=== PATIENT | female | born 1955 | race Caucasian/White ===

== ENCOUNTER 2021-07-25 12:39 | Inpatient (IN) | payer MEDICARE ==
[~2021-07-25] VITALS: Ht 160 cm; Wt 174.3 kg
[2021-07-25 14:18] LABS: BASOPHILS ABSOLUTE AUTO 0.03 K/mm3 (0.00-0.23); BASOPHILS PERCENT AUTO 0 % (0-2); EOSINOPHILS ABSOLUTE AUTO 0.02 K/mm3 (0.00-0.68); EOSINOPHILS PERCENT AUTO 0 % (0-6); Hematocrit 47.5 % (33.0-51.0); Hemoglobin 14.7 g/dL (11.5-16.0); IMMATURE GRAN ABSOLUTE AUTO 0.09 K/mm3 (0.00-0.10); IMMATURE GRAN PERCENT AUTO 1 % (0-1); LYMPHOCYTES ABSOLUTE AUTO 1.37 K/mm3 (0.84-5.20); LYMPHOCYTES PERCENT AUTO 9 % (21-46); MONOCYTES ABSOLUTE AUTO 0.62 K/mm3 (0.16-1.47); MONOCYTES PERCENT AUTO 4 % (4-13); Mean Corpuscular HGB 26.2 pg (26.0-34.0); Mean Corpuscular HGB Conc 30.9 g/dL (31.5-36.5); Mean Corpuscular Volume 85 fL (80-100); Mean Platelet Volume 10.5 fL (9.1-12.4); NEUTROPHILS ABSOLUTE AUTO 13.67 K/mm3 (1.96-9.15); NEUTROPHILS PERCENT AUTO 87 % (41-73); Platelet Count 332 K/mm3 (150-400); RDW Coefficient Variation 15.1 % (11.7-14.2); RDW Standard Deviation 46.3 fL (35.1-46.3); Red Blood Cell Count 5.61 M/mm3 (3.80-5.20)
[2021-07-25 14:27] LABS: Alanine Aminotransfer (ALT/SGP 39 U/L (12-78); Albumin, Blood 3.4 g/dL (3.4-5.0); Albumin/Globulin Ratio 0.9 (0.8-1.8); Alk Phos 80 U/L (50-136); Anion Gap 7 mmol/L (6-16); Aspartate Aminotrans (AST/SGOT 18 U/L (12-37); Bilirubin, Total 0.9 mg/dL (0.1-1.0); Blood Urea Nitrogen 19 mg/dL (8-24); Bun/Creatinine Ratio 31.4 (12.0-20.0); CO2, Blood 31 mmol/L (21-32); Calcium, Blood 9.1 mg/dL (8.5-10.1); Chloride, Blood 98 mmol/L (98-108); Creatinine, Blood 0.61 mg/dL (0.40-1.00); Globulin, Blood 3.7 g/dL (2.2-4.0); Glomerular Filtration Rate >60 (60-); Glucose, Blood 205 mg/dL (70-99); Potassium, Blood 3.9 mmol/L (3.5-5.5); Sodium, Blood 136 mmol/L (136-145); Total Protein, Blood 7.1 g/dL (6.4-8.2)
[2021-07-25] MEDS ORDERED: AMLODIPINE BESY10 MG PO (14:53)
[2021-07-25] MEDS ORDERED: DICL75ER PO (14:53)
[2021-07-25] MEDS ORDERED: ATORVASTATIN CA20 MG PO (14:53)
[2021-07-25] MEDS ORDERED: VENL75ER PO (14:54)
[2021-07-25] MEDS ORDERED: LOSA50 PO (14:54)
[2021-07-25] MEDS ORDERED: METFORMIN HCL500 M3 PO (14:54)
[2021-07-25] MEDS ORDERED: SYNTHROID88 MCG PO (14:55)
[2021-07-25 16:02] LABS: Source, Urine Fem Cath
[2021-07-25 16:06] LABS: Appearance, Urine Hazy (Clear); Bilirubin, Urine Neg (Neg); Blood, Urine 3+ (Neg); Color, Urine Amber (P-Yellow); Glucose Qualitative, Urine Neg (Neg); Ketones, Urine 3+ (Neg); Leukocyte Esterase, Urine 3+ (Neg); Nitrite, Urine Pos (Neg); Protein, Urine 1+ (Neg); Urobilinogen, Urine 2+ (Normal)
[2021-07-25 16:17] LABS: Bacteria Many /hpf; Red Blood Cells, Urine 0-2 /hpf (0-2); Squamous Epithelial Cells Not Seen /hpf (Few)
--- NOTE | 2021-07-26 | NUR ---
ARRIVAL TO ICU PT ARRIVED TO ICU 16 AT 2205 FROM OR ON ICU BED. PT INTUBATED WITH VENT SETTINGS AC/VC+ 18/375/8/40%. PT IS ALERT AND ANSWERING Y/N QUESTIONS APPROPRIATLY; PT IS ABLE TO COMMUNICATE WITH HAND GESTURES TOO; PROPOFOL STARTED AT 30MCG/KG/MIN AND TITRATED UP TO 40MCG/KG/MIN FOR VENT COMPLIENCE. AFEBRILE. HR 60-80'S. SBP 120-170'S. HYPOACTIVE BT; JAX DRAIN IN PLACE AND DRAINING SEROSANGUINOUS FLUID; DRESSING C/D/I; WOUND VAC TO MIDLINE ABD, DRESSING INTACT; NG TO LIS. FUENTES IN PLACE AND DRAINING TO GRAVITY. SINGLE 20G IV IN RT AC. NS INFUSING AT 75ML/HR. SEE ADDMISSION ASSESSMENT FOR FULL ASSESSMENT. ATTEMPTED TO PLACE ANOTHER PERIPHERAL IV AND NOT SUCCESSFUL. STITCHER SPECIAL MACHINE JANINA ATTMEPTED TWO OTHER PERIPHERAL IV'S AND NOT SUCCESSFUL. JANINA ATTEMPTED POWERGLIDE AND WAS NOT ABLE TO PLACE ONE. DR CARPENTER CALLED FOR A CENTRAL LINE. PLAN FOR HIM TO PLACE A CENTRAL LINE.
[2021-07-26 01:45] LABS: Source, Urine Foley catheter
[2021-07-26 01:50] LABS: Bilirubin, Urine Neg (Neg); Blood, Urine 4+ (Neg); Glucose Qualitative, Urine Neg (Neg); Ketones, Urine 3+ (Neg); Leukocyte Esterase, Urine 3+ (Neg); Nitrite, Urine Pos (Neg); Protein, Urine 2+ (Neg); Urobilinogen, Urine 1+ (Normal)
[2021-07-26 01:51] LABS: Appearance, Urine Hazy (Clear); Color, Urine Yellow (P-Yellow)
[2021-07-26 02:00] LABS: Red Blood Cells, Urine 25-50 /hpf (0-2); Squamous Epithelial Cells Not Seen /hpf (Few); White Blood Cells, Urine 50-100 /hpf (0-5)
[2021-07-26 02:01] LABS: Bacteria Mod /hpf
[2021-07-26 04:33] LABS: BASOPHILS ABSOLUTE AUTO 0.03 K/mm3 (0.00-0.23); BASOPHILS PERCENT AUTO 0 % (0-2); EOSINOPHILS PERCENT AUTO 0 % (0-6); Hematocrit 39.5 % (33.0-51.0); Hemoglobin 12.1 g/dL (11.5-16.0); IMMATURE GRAN PERCENT AUTO 1 % (0-1); LYMPHOCYTES ABSOLUTE AUTO 1.18 K/mm3 (0.84-5.20); LYMPHOCYTES PERCENT AUTO 7 % (21-46); MONOCYTES PERCENT AUTO 4 % (4-13); Mean Corpuscular HGB 26.2 pg (26.0-34.0); Mean Corpuscular HGB Conc 30.6 g/dL (31.5-36.5); Mean Corpuscular Volume 86 fL (80-100); Mean Platelet Volume 10.3 fL (9.1-12.4); NEUTROPHILS ABSOLUTE AUTO 14.02 K/mm3 (1.96-9.15); NEUTROPHILS PERCENT AUTO 87 % (41-73); Platelet Count 277 K/mm3 (150-400); RDW Coefficient Variation 15.1 % (11.7-14.2); Red Blood Cell Count 4.61 M/mm3 (3.80-5.20); White Blood Cell Count 16.03 K/mm3 (4.00-11.30)
[2021-07-26 05:02] LABS: Alanine Aminotransfer (ALT/SGP 30 U/L (12-78); Albumin, Blood 2.6 g/dL (3.4-5.0); Albumin/Globulin Ratio 0.9 (0.8-1.8); Alk Phos 63 U/L (50-136); Anion Gap 7 mmol/L (6-16); Aspartate Aminotrans (AST/SGOT 14 U/L (12-37); Bilirubin, Total 0.4 mg/dL (0.1-1.0); Blood Urea Nitrogen 17 mg/dL (8-24); Bun/Creatinine Ratio 27.3 (12.0-20.0); CO2, Blood 30 mmol/L (21-32); Chloride, Blood 102 mmol/L (98-108); Creatinine, Blood 0.62 mg/dL (0.40-1.00); Globulin, Blood 2.9 g/dL (2.2-4.0); Glomerular Filtration Rate >60 (60-); Glucose, Blood 177 mg/dL (70-99); Magnesium, Blood 1.9 mg/dL (1.6-2.4); Potassium, Blood 3.2 mmol/L (3.5-5.5); Sodium, Blood 139 mmol/L (136-145); Total Protein, Blood 5.5 g/dL (6.4-8.2)
--- NOTE | 2021-07-26 06:30 | NUR ---
END OF SHIFT SUMMARY PT CONT TO BE INTUBATED WITH VENT SETTINGS AC/VC+ 18/375/8/40%. PROPOFOL INFUSING AT 40MCG/KG/MIN; PT ABLE TO OPEN EYES TO VERBAL STIMULI. AFEBRILE. HR 60'S. SBP 120-140'S. PT HAD TWO LARGE LOOSE BM'S THIS SHIFT; JAX DRAINING WITH 50ML OUTPUT; WOUND VAC DRESSING INTACT; NG TO LIS. FUENTES INPLACE WITH 650ML URINE OUTPUT. PT JEREMY FOLDS VERY RED AND YEAST LOOKING; PICTURES IN CHART; AREA CLEANED AND DRIED. CENTRAL LINE TO RT IJ IN PLACE; PT TOLERATED PROCEDURE WILL. NS INFUSING AT 75ML/HR. REPORT GIVEN TO MADHU Willett RN.
--- NOTE | 2021-07-26 07:30 | NUR ---
ASSUMED CARE: PT INTUBATED AND SEDATED WITH PROPOFOL AT 40MCG/KG. VENT SETTINGS 18/350/8/40%. OG IN PLACE WITH GREEN DRAINAGE, SET AT LIS. STOOL THIS AM, BROWN, LIQUID. BT HYPOACTIVE. FUENTES IN PLACE DRAINING CLEAR YELLOW URINE. BILATERAL WRIST RESTRAINTS TO PROTECT LINES. MIDLINE DRESSING WITH IRAIS AND JAX DRAIN DRAINING CRANBERRY COLORED FLUID. NO ACUTE NEEDS AT THIS TIME.
--- NOTE | 2021-07-26 09:42 | NUR ---
DR RODGERS CAME TO SEE PT AND CHANGED VENT SETTINGS TO PS WITH CURRENT SETTING 5/5 WITH 40% FIO2. SEDATION ON SB. DR MOCTEZUMA CAME TO SEE PT AND GAVE NO NEW ORDERS ON HERNIA SITE AT THIS TIME. DRS STATE PT HAS A HYDRONEPHROSIS THAT WILL BE ADDRESSED AT A LATER TIME, AFTER RESPIRATORY STATUS IS STABILIZED
--- NOTE | 2021-07-26 10:43 | NUR ---
PT EXTUBATED AT 1020. CURRENTLY ON 4LNC AT THIS TIME. NO ACUTE NEEDS. RESTING QUIETLY. STATES PAIN IS 5/10. WILL MEDICATE ABLE
--- NOTE | 2021-07-26 13:56 | NUR ---
CALL TO DR MOCTEZUMA REGARDING PT'S FLUID ORDER. CHANGED FLUID TO LR. AWARE THAT BROWN OUTPUT NOTED AND 800ML IN CANISTER THIS SHIFT. PT C/O PAIN WITH REPOSITIONING. CURRENT PAIN MED ORDERS TO REMAIN. WISHES TO MONITOR PT A FEW HOURS MORE IN ICU THEN OK TO MOVE TO SURG IF NO ACUTE ISSUES.
--- NOTE | 2021-07-26 15:00 | NUR ---
NOTIFIED DR RODGERS AND THIRD RIGGER DUE TO PT DESATURATING INTO 60S WITH SLEEP. WHEN PT WAKES UP, SATURATIONS IMPROVE BACK INTO THE 90S QUICKLY. THIRD RIGGER SUGGESTED HIFLOW CANNULA FOR EXTRA PRESSURE BUT DR MCCAULEY STATES PT IS OK ON NC AND SHOULD HAVE CONTINOUS BIOX WHEN GOING TO FLOOR
--- NOTE | 2021-07-26 15:50 | NUR ---
CALL TO SURGICAL FLOOR TO CHECK ON WISHES FOR CENTRAL LINE REMOVAL DUE TO THE FACT THAT PT HAS 1 PERIPHERAL LINE AND POOR IV ACCESS. CLINICAL COORDINATOR ON SURG STATED OK TO BRING OUT IF DR WAS COMFORTABLE WITH PT BEING ON SURGICAL WITH IT. DR RODGERS STATES OK TO SEND PT WITH IT SO THAT PT WILL CONTINUE TO HAVE ACCESS.
--- NOTE | 2021-07-26 17:23 | NUR ---
PATIENT ARRIVED TO UNIT FROM ICU. TRANSFERRED TO BED W/ OVERHEAD LIFT, PATIENT TOLERATED WELL. REPORTS PAIN TO BE 5/10 TO ABDOMEN AND REPORTS THAT TO BE A TOLERABLE LEVEL. MIDLINE INCIOSION W/ IRAIS, QUARTER SIZE DRAINAGE PRESENT. JAX IN [place], DRAINING LIGHT RED FLUID. FUENTES IN PLACE DRAINING TO GRAVITY, CLEAR YELLOW URINE. NG TUBE IN PLACE DRAINING LIGHT RED/ YELLOW FLUID TO LOW INT SUCTION. 4L O2 IN PLACE VIA NC. DENIES CP/SOB, DENIES N/T, DENIES N/V, REMAINS NPO. ORIENTED PATIENT TO ROOM & CALL LIGHT. WILL CONTINUE TO MONITOR & REPORT TO ONCOMING RN.
--- NOTE | 2021-07-26 17:26 | NUR ---
REPORT CALLED TO JACOBO IVEY. PT TRANSFERRED WITH NG CLAMPED FOR LIS IN SURGICAL FLOOR. TRANSFERRED VIA BED ON 2L. RN AWARE THAT PT IS TO BE ON CONTINUOUS BIOX DUE DESATURATING WITH SLEEP. FAMILY CALLED FOR UPDATE AND WERE MADE AWARE OF TRANSFER.
--- NOTE | 2021-07-27 02:18 | NUR ---
PT COMPLAINS OF LOWER BACK PAIN FREQUENTLY BUT CONTINUES TO DECLINE BEING REPOSITIONED IN BED, EXTRA PILLOWS, AND A HEATING PAD. WILL CONT TO OFFER, BUT PT ONLY WANTS HER HEAD OF BED RAISED AND LOWERED AT THIS TIME.
--- NOTE | 2021-07-27 04:20 | NUR ---
SHIFT SUMMARY NO ACUTE CHANGES THIS SHIFT. NGT TO LIS WITH BROWN DRAINAGE. JAX WITH MINIMAL SS DRAINAGE. IRAIS MIDLINE REMAINS INTACT. IVF INFUSING PER ORDERS. 50 MCG FENTANYL FOR PAIN PRN. PT REFUSES TO BE REPOSITIONED IN BED T/O SHIFT. FUENTES INTACT AND DRAINING. USES CALL LIGHT APPROPRIATELY.
[2021-07-27 04:58] LABS: BASOPHILS ABSOLUTE AUTO 0.03 K/mm3 (0.00-0.23); BASOPHILS PERCENT AUTO 0 % (0-2); EOSINOPHILS ABSOLUTE AUTO 0.13 K/mm3 (0.00-0.68); EOSINOPHILS PERCENT AUTO 1 % (0-6); Hematocrit 40.5 % (33.0-51.0); Hemoglobin 12.2 g/dL (11.5-16.0); IMMATURE GRAN ABSOLUTE AUTO 0.11 K/mm3 (0.00-0.10); IMMATURE GRAN PERCENT AUTO 1 % (0-1); LYMPHOCYTES ABSOLUTE AUTO 1.74 K/mm3 (0.84-5.20); LYMPHOCYTES PERCENT AUTO 11 % (21-46); MONOCYTES ABSOLUTE AUTO 0.91 K/mm3 (0.16-1.47); MONOCYTES PERCENT AUTO 6 % (4-13); Mean Corpuscular HGB 26.2 pg (26.0-34.0); Mean Corpuscular HGB Conc 30.1 g/dL (31.5-36.5); Mean Corpuscular Volume 87 fL (80-100); Mean Platelet Volume 9.9 fL (9.1-12.4); NEUTROPHILS ABSOLUTE AUTO 12.66 K/mm3 (1.96-9.15); NEUTROPHILS PERCENT AUTO 81 % (41-73); Platelet Count 249 K/mm3 (150-400); RDW Coefficient Variation 15.5 % (11.7-14.2); RDW Standard Deviation 49.1 fL (35.1-46.3); Red Blood Cell Count 4.65 M/mm3 (3.80-5.20); White Blood Cell Count 15.58 K/mm3 (4.00-11.30)
[2021-07-27 05:45] LABS: Albumin, Blood 2.4 g/dL (3.4-5.0); Anion Gap 4 mmol/L (6-16); Blood Urea Nitrogen 13 mg/dL (8-24); Bun/Creatinine Ratio 19.7 (12.0-20.0); CO2, Blood 33 mmol/L (21-32); Calcium, Blood 8.2 mg/dL (8.5-10.1); Chloride, Blood 105 mmol/L (98-108); Creatinine, Blood 0.66 mg/dL (0.40-1.00); Glomerular Filtration Rate >60 (60-); Glucose, Blood 144 mg/dL (70-99); Phosphorus, Blood 2.8 mg/dL (2.5-4.9); Potassium, Blood 3.1 mmol/L (3.5-5.5); Sodium, Blood 142 mmol/L (136-145)
--- NOTE | 2021-07-27 18:46 | NUR ---
SHIFT SUMMARY PT ADVANCED TO CLEAR LIQUIDS THIS AM. PT TOLERATING DIET WELL. PT'S NG TUBE DCED DURING THIS SHIFT. PT OUT OF BED AND TO CHAIR W/ ASSISTANCE FROM PT. PT TO BE NPO AT MIDNIGHT PER DR MOCTEZUMA. PT RECEIVED MEDICATIONS ORDERED THROUGHOUT SHIFT. PT'S PAIN CONTROLLED W/ NORCO ADMINISTERED ORDERED. PT RESTED THROUGHOUT DURATION OF SHIFT AND CONTINUED TO REST IN CHAIR AT THIS TIME.
--- NOTE | 2021-07-28 04:14 | NUR ---
SHIFT SUMMARY NO ACUTE CHANGES. PT SLEPT IN CHAIR. 2 NORCO FOR ABD/LOWER BACK PAIN. IRAIS REMAINS COMPRESSED AND INTACT. JAX WITH SMALL SS DRAINAGE. PT WITH NO FLATUS YET. DENIES NAUSEA. NPO SINCE MIDNIGHT FOR IR PROCEDURE. FUENTES IN PLACE. IVF INFUSING PER ORDERS. USES CALL LIGHT APPROPRIATELY.
[2021-07-28 05:01] LABS: BASOPHILS ABSOLUTE AUTO 0.05 K/mm3 (0.00-0.23); BASOPHILS PERCENT AUTO 0 % (0-2); EOSINOPHILS ABSOLUTE AUTO 0.32 K/mm3 (0.00-0.68); EOSINOPHILS PERCENT AUTO 3 % (0-6); Hematocrit 39.4 % (33.0-51.0); Hemoglobin 11.6 g/dL (11.5-16.0); IMMATURE GRAN ABSOLUTE AUTO 0.09 K/mm3 (0.00-0.10); IMMATURE GRAN PERCENT AUTO 1 % (0-1); LYMPHOCYTES ABSOLUTE AUTO 2.24 K/mm3 (0.84-5.20); LYMPHOCYTES PERCENT AUTO 18 % (21-46); MONOCYTES ABSOLUTE AUTO 0.68 K/mm3 (0.16-1.47); MONOCYTES PERCENT AUTO 5 % (4-13); Mean Corpuscular HGB 26.1 pg (26.0-34.0); Mean Corpuscular HGB Conc 29.4 g/dL (31.5-36.5); Mean Corpuscular Volume 89 fL (80-100); Mean Platelet Volume 9.9 fL (9.1-12.4); NEUTROPHILS ABSOLUTE AUTO 9.22 K/mm3 (1.96-9.15); NEUTROPHILS PERCENT AUTO 73 % (41-73); Platelet Count 239 K/mm3 (150-400); RDW Coefficient Variation 15.5 % (11.7-14.2); RDW Standard Deviation 50.1 fL (35.1-46.3); Red Blood Cell Count 4.44 M/mm3 (3.80-5.20)
[2021-07-28 05:34] LABS: Anion Gap 3 mmol/L (6-16); Blood Urea Nitrogen 12 mg/dL (8-24); Bun/Creatinine Ratio 22.3 (12.0-20.0); CO2, Blood 34 mmol/L (21-32); Calcium, Blood 8.3 mg/dL (8.5-10.1); Chloride, Blood 103 mmol/L (98-108); Creatinine, Blood 0.54 mg/dL (0.40-1.00); Glomerular Filtration Rate >60 (60-); Glucose, Blood 136 mg/dL (70-99); Potassium, Blood 3.4 mmol/L (3.5-5.5); Sodium, Blood 140 mmol/L (136-145)
[2021-07-29 05:05] LABS: BASOPHILS ABSOLUTE AUTO 0.04 K/mm3 (0.00-0.23); BASOPHILS PERCENT AUTO 0 % (0-2); EOSINOPHILS ABSOLUTE AUTO 0.21 K/mm3 (0.00-0.68); EOSINOPHILS PERCENT AUTO 1 % (0-6); Hematocrit 37.9 % (33.0-51.0); Hemoglobin 11.1 g/dL (11.5-16.0); IMMATURE GRAN ABSOLUTE AUTO 0.08 K/mm3 (0.00-0.10); IMMATURE GRAN PERCENT AUTO 1 % (0-1); LYMPHOCYTES ABSOLUTE AUTO 0.79 K/mm3 (0.84-5.20); LYMPHOCYTES PERCENT AUTO 5 % (21-46); MONOCYTES ABSOLUTE AUTO 0.51 K/mm3 (0.16-1.47); MONOCYTES PERCENT AUTO 3 % (4-13); Mean Corpuscular HGB 26.2 pg (26.0-34.0); Mean Corpuscular HGB Conc 29.3 g/dL (31.5-36.5); Mean Corpuscular Volume 90 fL (80-100); Mean Platelet Volume 10.2 fL (9.1-12.4); NEUTROPHILS ABSOLUTE AUTO 14.27 K/mm3 (1.96-9.15); NEUTROPHILS PERCENT AUTO 90 % (41-73); Platelet Count 216 K/mm3 (150-400); RDW Coefficient Variation 15.2 % (11.7-14.2); Red Blood Cell Count 4.23 M/mm3 (3.80-5.20)
[2021-07-29 05:30] LABS: Anion Gap 2 mmol/L (6-16); Blood Urea Nitrogen 12 mg/dL (8-24); Bun/Creatinine Ratio 18.9 (12.0-20.0); CO2, Blood 34 mmol/L (21-32); Calcium, Blood 8.2 mg/dL (8.5-10.1); Chloride, Blood 102 mmol/L (98-108); Creatinine, Blood 0.63 mg/dL (0.40-1.00); Glomerular Filtration Rate >60 (60-); Glucose, Blood 139 mg/dL (70-99); Potassium, Blood 3.7 mmol/L (3.5-5.5); Sodium, Blood 138 mmol/L (136-145)
--- NOTE | 2021-07-29 05:46 | NUR ---
GENETICIST SUMMARY NO ACUTE CHANGES THIS SHIFT. PT AAOX4 AND PLEASANT. IRAIS DRESSING TO MIDLINE INCISION WITH SCANT AMOUNT OF OLD DRAINAGE, NOTHING NEW THIS SHIFT. JAX DRAINING SMALL AMOUNT OF SEROSANGUINOUS FLUID. R NEPHROSTOMY DRAINING YELLOW URINE WITH SLIGHT PINK TINGE. MEDICATED FOR BACK AND HEADACHE PAIN X1 THIS SHIFT. VSS, WILL CONTINUE TO MONITOR.
--- NOTE | 2021-07-29 13:01 | NUR ---
Patient now has discharge orders entered. Gathered all supporting documentation for referral (face sheet, face to face, med list, H&P, and most recent PT assessment) and sent to [facility] for review. No further interventions required. Zeenat Garcia Referral Liaison
[2021-07-29] MEDS ORDERED: VISBIOME 112.51 EACH PO (13:39)
[2021-07-29] MEDS ORDERED: CEFD300 PO (13:39)
--- NOTE | 2021-07-29 15:20 | NUR ---
DR MOCTEZUMA AT BEDSIDE. REMOVED JAX DRAIN AND IRAIS. DISCUSSED F/U APPT W/ PT.
--- NOTE | 2021-07-29 15:21 | NUR ---
PT AMBULATED TO THE BATHROOM AND VOIDED.
--- NOTE | 2021-07-29 17:38 | NUR ---
DINNER TRAY DELIVERED TO PT.
--- NOTE | 2021-07-29 19:00 | NUR ---
DISCHARGE SUMMARY PT A&OX4, VSS/RA, GILDA PO, VOIDING, AMB W/FWW, UP TO CHAIR T/O SHIFT, OXYGEN DELIVERED BY [facility]/AND THEN HEADING TO PT'S HOME. DC INS PROVIDED. PT REP UNDERSTANDING THOSE INSTRUCTIONS INCLUDING FU WITH PCP, SURGEON AND UROLOGY. LEFT FLOOR VIA WC TO GO HOME WITH MOM, WITH ALL PERSONAL POSSESSIONS INCLUDING DC PACKET AND 1 NARC SCRIPT.
== END 2021-07-29 18:40 | disposition home health service (06) | DRG 854 ==
LOC: ER 12:39 → SURS 20:56 → ICUW 20:56 → SURS 07-26 17:16
PROVIDERS: Internal Medicine; Internal Medicine Critical Care Medicine; Nurse Practitioner Acute Care; Physician Assistant; Student in an Organized Health Care Education/Training Program; ADMIT Surgery
PROC: 0DBU0ZZ Excision of Omentum, Open Approach (ICD-10-PCS; 2021-07-25)
PROC: 3E03329 Introduction of Other Anti-infective into Peripheral Vein, Percutaneous Approach (ICD-10-PCS; principal; 2021-07-25 20:00)
PROC: 0WQF0ZZ Repair Abdominal Wall, Open Approach (ICD-10-PCS; 2021-07-25 20:00)
PROC: 0T9030Z Drainage of Right Kidney with Drainage Device, Percutaneous Approach (ICD-10-PCS; 2021-07-28)
DX: A41.51 Sepsis due to Escherichia coli [E. coli] (principal); K42.0 Umbilical hernia with obstruction, without gangrene; N13.6 Pyonephrosis; Z68.44 Body mass index [BMI] 60.0-69.9, adult; Z66 Do not resuscitate; E66.01 Morbid (severe) obesity due to excess calories; M19.90 Unspecified osteoarthritis, unspecified site; E87.6 Hypokalemia; Z20.822 Contact with and (suspected) exposure to COVID-19; I10 Essential (primary) hypertension; E11.9 Type 2 diabetes mellitus without complications; I73.9 Peripheral vascular disease, unspecified; E78.5 Hyperlipidemia, unspecified; E03.9 Hypothyroidism, unspecified; Z90.49 Acquired absence of other specified parts of digestive tract; Z79.84 Long term (current) use of oral hypoglycemic drugs; Z79.899 Other long term (current) drug therapy
CPT/HCPCS: 31720; 36415; 36556; 50432; 51701; 71045; 74177; 76937; 76998; 80048; 80053; 80069; 81001; 82947; 83605; 83690; 83735; 85025; 87040; 87077; 87086; 87186; 93005; 93010; 94002; 94003; 94760; 94761; 94762; 96372; 96374; 96375; 96376; 97110; 97162; 97166; 97530; 97535; 99152; 99153; 99285-25; A9270; C1729; C1751; C1769; C1894; J0330; J0500; J0690; J0696; J1100; J1650; J1815; J2250; J2405; J2704; J3010; J3480; J7030; J7050; J7120; Q9967

== ENCOUNTER 2021-09-03 11:24 | Observation (INO) | payer MEDICARE ==
[~2021-09-03] VITALS: Ht 160 cm; Wt 172.4 kg
[~2021-09-03 11:24] MED LIST: AMLODIPINE BESY10 MG PO; ATORVASTATIN CA20 MG PO; CEFD300 PO; DICL75ER PO; LOSA50 PO; METFORMIN HCL500 M3 PO; SYNTHROID88 MCG PO; VENL75ER PO; VISBIOME 112.51 EACH PO
[2021-09-03 14:51] LABS: BASOPHILS ABSOLUTE AUTO 0.04 K/mm3 (0.00-0.23); BASOPHILS PERCENT AUTO 0 % (0-2); EOSINOPHILS ABSOLUTE AUTO 0.22 K/mm3 (0.00-0.68); EOSINOPHILS PERCENT AUTO 2 % (0-6); Hematocrit 40.6 % (33.0-51.0); IMMATURE GRAN ABSOLUTE AUTO 0.08 K/mm3 (0.00-0.10); IMMATURE GRAN PERCENT AUTO 1 % (0-1); LYMPHOCYTES ABSOLUTE AUTO 2.37 K/mm3 (0.84-5.20); LYMPHOCYTES PERCENT AUTO 19 % (21-46); MONOCYTES ABSOLUTE AUTO 0.51 K/mm3 (0.16-1.47); MONOCYTES PERCENT AUTO 4 % (4-13); Mean Corpuscular HGB 25.7 pg (26.0-34.0); Mean Corpuscular HGB Conc 29.6 g/dL (31.5-36.5); Mean Corpuscular Volume 87 fL (80-100); Mean Platelet Volume 10.5 fL (9.1-12.4); NEUTROPHILS ABSOLUTE AUTO 9.52 K/mm3 (1.96-9.15); NEUTROPHILS PERCENT AUTO 75 % (41-73); Platelet Count 253 K/mm3 (150-400); RDW Coefficient Variation 14.6 % (11.7-14.2); RDW Standard Deviation 46.6 fL (35.1-46.3); Red Blood Cell Count 4.67 M/mm3 (3.80-5.20); White Blood Cell Count 12.74 K/mm3 (4.00-11.30)
[2021-09-03 15:12] LABS: Albumin, Blood 3.1 g/dL (3.4-5.0); Albumin/Globulin Ratio 0.9 (0.8-1.8); Bilirubin, Total 0.4 mg/dL (0.1-1.0); Bun/Creatinine Ratio 21.5 (12.0-20.0); Calcium, Blood 9.1 mg/dL (8.5-10.1); Creatinine, Blood 0.65 mg/dL (0.40-1.00); Globulin, Blood 3.3 g/dL (2.2-4.0); Potassium, Blood 4.2 mmol/L (3.5-5.5); Total Protein, Blood 6.4 g/dL (6.4-8.2)
[2021-09-03 16:17] LABS: Source, Urine Clean Catch
[2021-09-03 16:20] LABS: Appearance, Urine Clear (Clear); Bilirubin, Urine Neg (Neg); Blood, Urine 1+ (Neg); Color, Urine Yellow (P-Yellow); Glucose Qualitative, Urine Neg (Neg); Ketones, Urine Neg (Neg); Leukocyte Esterase, Urine 1+ (Neg); Nitrite, Urine Neg (Neg); Protein, Urine Neg (Neg); Urobilinogen, Urine NORM (Normal)
[2021-09-03 16:28] LABS: Bacteria Few /hpf; Red Blood Cells, Urine 0-2 /hpf (0-2); Squamous Epithelial Cells Few /hpf (Few)
--- NOTE | 2021-09-03 20:51 | NUR ---
telemetry: SR 70's. Unable to place SCD's per order due to large size of patient. Tegaderm dressing placed over right nephrostomy puncture site to secure tubing. nephrostomy putting out pinkish alicia urine.
--- NOTE | 2021-09-04 04:12 | NUR ---
Patient slept well after receiving HS ibuprophen and a lite dinner. Right nephrostomy site soft flat and dry without leakage or redness. Tegaderm remains in place for protection. Drainage clear and alicia (slightly pink)
[2021-09-04 05:17] LABS: Calcium, Blood 9.1 mg/dL (8.5-10.1); Creatinine, Blood 0.73 mg/dL (0.40-1.00); Potassium, Blood 4.6 mmol/L (3.5-5.5)
--- NOTE | 2021-09-04 15:23 | NUR ---
DISCHARGE SUMMARY PATIENT DISCHARGED HOME. DISCHARGE INSTRUCTIONS REVIEWED WITH PATIENT. ALL QUESTIONS ANSWERED. NO NEW PRESCRIPTIONS NEEDED. IV AND TELE D/C'D. PATIENT AND ALL BELONGINGS INCLUDING WALKER TAKEN HOME WITH PATIENT. PATIENT TRANSPORTED VIA WHEELCHAIR TO PERSONAL VEHICLE AND TAKEN HOME BY FAMILY MEMBER.
== END 2021-09-04 15:11 | disposition home or self-care (01) ==
LOC: ER 11:24 → MEDS 11:25
PROVIDERS: Emergency Medicine; ADMIT Internal Medicine
DX: T83.022A Displacement of nephrostomy catheter, initial encounter (principal); Y73.8 Miscellaneous gastroenterology and urology devices associated with adverse incidents, not elsewhere classified; N13.0 Hydronephrosis with ureteropelvic junction obstruction; I10 Essential (primary) hypertension; E11.9 Type 2 diabetes mellitus without complications; E03.9 Hypothyroidism, unspecified; E78.5 Hyperlipidemia, unspecified; E66.01 Morbid (severe) obesity due to excess calories; Z66 Do not resuscitate; Z79.84 Long term (current) use of oral hypoglycemic drugs; Z79.899 Other long term (current) drug therapy
CPT/HCPCS: 36415; 74177; 80048; 80053; 81001; 82947; 85025; 87086; 96372; 99152; 99153; 99284-25; A9270; C1769; C1887; C2617; G0378; J1650; J2405; J2543; J3010; J7030; J7040; Q9967